=== PATIENT | male | born 1950 | race Caucasian/White ===

== ENCOUNTER 2017-10-07 08:35 | Day surgery (SDC) | payer MEDICARE ==
[2017-10-05 15:02] VITALS: BP 159/75
[2017-10-05 15:02] LABS: BASOPHILS % (AUTO) 0.5 % (0.0-5.0); EOSINOPHILS % (AUTO) 2.5 % (0.0-8.0); HEMATOCRIT 41.8 % (42-54); LYMPHOCYTES % (AUTO) 19.3 % (21.0-51.0); MEAN CORPUSCULAR HEMOGLOBIN 28.9 pg (27.0-33.0); MEAN CORPUSCULAR HGB CONC 33.8 g/dL (32.0-36.0); MEAN CORPUSCULAR VOLUME 85.3 fL (79-99); MONOCYTES % (AUTO) 12.1 % (3.0-13.0); NEUTROPHILS % (AUTO) 65.6 % (40.0-77.0); PLATELET COUNT (AUTO) 316 K/uL (130-400); RED CELL DISTRIBUTION WIDTH 14.7 % (11.0-15.5); WHITE BLOOD COUNT (AUTO) 8.3 K/uL (4.8-10.8)
[2017-10-05 15:07] LABS: CREATININE 1.1 mg/dL (0.5-1.5); POTASSIUM 5.1 mmol/L (3.5-5.1)
[2017-10-05 15:10] LABS: INR 0.95 (0.85-1.15); PARTIAL THROMBOPLASTIN TIME 28.5 SEC (26.3-35.5)
[2017-10-05 15:16] LABS: APPEARANCE,URINE Clear (CLEAR); BILIRUBIN,URINE Negative (NEGATIVE); COLOR,URINE Yellow (YELLOW); GLUCOSE, URINE (UA) Negative (NEGATIVE); KETONES,URINE Negative (NEGATIVE); LEUKOCYTE ESTERASE ,URINE Large (NEGATIVE); NITRATE,URINE Negative (NEGATIVE); OCCULT BLOOD,URINE Moderate (NEGATIVE); PH,URINE 7.5 (5.0-8.0); PROTEIN,URINE POS 1+ (NEGATIVE); UROBILINOGEN,URINE 0.2 mg/dL (0.2-1.0)
[2017-10-05 15:37] LABS: BACTERIA,URINE Few /HPF (None Seen); RBC,URINE 0-1 /HPF (0-1); WBC,URINE 26-50 /HPF (0-1)
[2017-10-07] VITALS (13 sets, daily range): BP systolic 102–137; BP diastolic 52–78
[~2017-10-07] VITALS: Ht 175.3 cm; Wt 100.5 kg
[~2017-10-07 08:35] MED LIST: HYDR-4060 PO; LISI10TA7 PO
[2017-10-07] MEDS: CEFTRIAXONE SODIUM 1 GM IVP SCH ×2 (10:00→13:30)
[2017-10-07] MEDS: GENTAMICIN 80 MG/NS 100 ML PB 100 ML IV SCH ×2 (10:00→13:00)
[2017-10-07] MEDS ORDERED: LACTATED RINGERS 1000ML 1,000 ML IV ONE (10:09)
[2017-10-07] MEDS ORDERED: LEVO500T2 PO (10:20)
[2017-10-07] MEDS ORDERED: FENTANYL CITRATE PF 50 MCG/1 ML 2ML VIAL ONE ×2 (13:21→13:35)
[2017-10-07] MEDS ORDERED: DEXAMETHASONE SOD PHOSPHATE 10MG/ML 1ML VIAL ONE (13:21)
[2017-10-07] MEDS ORDERED: MIDAZOLAM HCL 1 MG/ML 2ML VIAL ONE (13:21)
[2017-10-07] MEDS ORDERED: PROPOFOL 10 MG/ML 20ML VIAL IV ONE (13:21)
[2017-10-07] MEDS ORDERED: ONDANSETRON HCL 4 MG/2 ML VIAL ONE (13:21)
[2017-10-07] MEDS ORDERED: LIDOCAINE PF 2% 5ML ABBOJECT ONE (13:21)
[2017-10-07] MEDS ORDERED: SUCCINYLCHOLINE 200MG/10ML SYR ONE (13:40)
[2017-10-07] MEDS ORDERED: ROCURONIUM BROMIDE 10MG/1ML 5ML VL ONE (13:40)
[2017-10-07] MEDS ORDERED: MORPHINE SULFATE 10 MG/ML 1ML SYG ONE (13:43)
[2017-10-07] MEDS ORDERED: ESMOLOL HCL 10 MG/ML 10 ML VIAL ONE (13:50)
[2017-10-07] MEDS ORDERED: NEOSTIGMINE METHYLSULFATE 1MG/ML IV ONE (14:02)
[2017-10-07] MEDS ORDERED: EPHEDRINE SULFATE 50 MG/ML AMPULE ONE (14:15)
== END 2017-10-07 16:22 | disposition home or self-care (01) ==
LOC: DAH 08:35
PROVIDERS: ATTEND Urology
DX: C67.8 Malignant neoplasm of overlapping sites of bladder (principal); N30.20 Other chronic cystitis without hematuria; N40.1 Benign prostatic hyperplasia with lower urinary tract symptoms; R35.0 Frequency of micturition; Z85.46 Personal history of malignant neoplasm of prostate; Z98.890 Other specified postprocedural states; Z79.01 Long term (current) use of anticoagulants
CPT/HCPCS: 36415; 52204; 55700; 76942; 80048; 81001; 85025; 85610; 85730; 87088; 88305; 93005; A4215; A4354; A4358; A4600; J0330; J0696; J1100; J1580; J2001; J2250; J2270; J2405; J2704; J2710; J3010 ×2; J3490 ×3; J7120 ×2; A4218